=== PATIENT | male | born 1960 | race Caucasian/White ===

== ENCOUNTER 2021-03-11 11:32 | Emergency (ER) | payer BC ==
[2021-03-11 12:04] LABS: Basophils % (A) 0 %; Eosinophils # (A) 0.1 k/uL (0-0.7); Eosinophils % (A) 2 %; HCT 42.3 % (39.0-53.0); Lymphocytes # (A) 1.7 k/uL (1.0-4.8); Lymphocytes % (A) 19 %; MCV 90.8 fL (80.0-100.0); Mean Platelet Volume 9.1; Monocytes # (A) 0.6 k/uL (0-1.0); Monocytes % (A) 6 %; Neutrophils # (A) 6.4 k/uL (1.3-7.7); Neutrophils % (A) 71 %; Platelet Count 410 k/uL (150-450); RBC 4.66 m/uL (4.30-5.90); RDW 13.3 % (11.5-15.5)
--- NOTE | 2021-03-11 12:08 | ED ---
Fall HPI <Gianna Velasquez - Last Filed: 03/11/21 14:40> - General Source: patient, EMS Mode of arrival: EMS - History of Present Illness MD Complaint: fall <TomYg - Last Filed: 03/11/21 14:52> - General Chief Complaint: Fall Stated Complaint: Head trauma Time Seen by Provider: 03/11/21 11:32 - History of Present Illness Initial Comments: Is a 60-year-old male who was up on a foot ladder cleaning his gutters when the ladder collapsed and he fell approximately 8 feet cement. He did strike his head on the cement as well as sustained abrasions to the extremities of both hands. He did have loss of consciousness for about 3 minutes. He was brought in by EMS C-collared. He did complain of left-sided head pain he had an approximately a severe left for had laceration with possible evidence of depression he also complains some left-sided chest pain and upper abdominal tin n. No loss of function to the upper or lower extremities the patient is hard of hearing it should be noted he did have multiple abrasions of both hands with partial avulsion of the right thumbnail. He complains of pain to the left thumb nail area as well as to the distal left wrist. No fevers chills nausea vomiting sweats he knew who he was in the 1 day was then over the month or year. Per par amedics she also perseverating somewhat. He does believe his last tetanus shot was 2 years ago. (Yg Santos) - Related Data Home Medications Medication Instructions Recorded Confirmed Celecoxib [CeleBREX] 200 mg PO BID 03/11/21 03/11/21 DULoxetine HCL [Cymbalta] 60 mg PO DAILY 03/11/21 03/11/21 Fenofibrate Nanocrystallized 145 mg PO DAILY 03/11/21 03/11/21 [Fenofibrate] Simvastatin [Zocor] 40 mg PO DAILY 03/11/21 03/11/21 Triamterene-Hctz 37.5-25Mg 1 cap PO DAILY 03/11/21 03/11/21 [Dyazide 37.5-25 Capsule] amLODIPine [Norvasc] 5 mg PO DAILY 03/11/21 03/11/21 busPIRone HCL 10 mg PO BID 03/11/21 03/11/21 Previous Rx's Medication Instructions Recorded Cephalexin [Keflex] 500 mg PO Q8HR 7 Days #21 cap 03/11/21 Allergies Allergy/AdvReac Type Severity Reaction Status Date / Time No Known Allergies Allergy Verified 03/11/21 12:35 Review of Systems ROS Other: All systems not noted in ROS Statement are negative. <Gianna Velasquez - Last Filed: 03/11/21 14:40> ROS Other: All systems not noted in ROS Statement are negative. <Yg Santos - Last Filed: 03/11/21 14:52> ROS Statement: Those systems with pertinent positive or pertinent negative responses have been documented in the HPI. Past Medical History Past Medical History: No Reported History History of Any Multi-Drug Resistant Organisms: None Reported Additional Past Surgical History / Comment(s): neck and ear surgery Past Psychological History: No Psychological Hx Reported Smoking Status: Former smoker Past Alcohol Use History: Occasional Past Drug Use History: None Reported <Yg Santos - Last Filed: 03/11/21 14:52> General Exam Limitations: no limitations General appearance: alert, anxious Head exam: Present: normocephalic, other (Mark 570 laceration left for had no active bleeding) Eye exam: Present: normal appearance, PERRL, EOMI. Absent: scleral icterus, conjunctival injection, periorbital swelling ENT exam: Present: normal exam, mucous membranes moist Neck exam: Present: normal inspection, other (No stridor JVD or bruits some mild tenderness of the paraspinous musculature no step-off or crepitation c-collar in place) Respiratory exam: Present: normal lung sounds bilaterally, chest wall tenderness (Tennis palpation along the anterolateral chest wall with no step-off or crepitation). Absent: respiratory distress, wheezes, rales, rhonchi, stridor Cardiovascular Exam: Present: regular rate, normal rhythm, normal heart sounds. Absent: systolic murmur, diastolic murmur, rubs, gallop, clicks GI/Abdominal exam: Present: soft, tenderness (Left flank tenderness no ecchymosi s seen) Rectal exam: Present: normal inspection exam: Present: normal inspection Extremities exam: Present: normal inspection (Is palpation of the left hip area no step-off or crepitation he does demonstrate full range of motion), tenderness, normal capillary refill, other (Multiple abrasions seen over the dorsal aspects of the fingers and both hands stress the partial avulsion of the right thumbnail no active bleeding however. Abrasions over the right thumb as well as the adjacent fingers) Back exam: Present: normal inspection Neurological exam: Present: alert, altered, CN II-XII intact Psychiatric exam: Present: normal affect, anxious Skin exam: Present: warm, dry, normal color. Absent: intact <TomYg - Last Filed: 03/11/21 14:52> - General Exam Comments Initial Comments: This a well-developed well-nourished awake alert oriented 2 male Madhuri Coma Scale 14 (TomYg) Course Vital Signs 03/11/21 11:32 Temperature 97.7 F Pulse Rate 69 Respiratory 20 Rate O2 Sat by Pulse 97 Oximetry Procedures - Laceration Laceration #1 Consent Obtained: verbal consent Indication: laceration Site: face (Left side of forehead into the scalp) Size (cm): 8 Description: linear Depth: simple, single layer Anesthetic Used: lidocaine 1% Anesthesia Technique: local infiltration Amount (mls): 8 Pre-repair: irrigated extensively Type of Sutures: vicryl Size of Sutures: 5-0 Number of Sutures: 13 Technique: simple, interrupted Patient Tolerated Procedure: well <Gianna Velasquez - Last Filed: 03/11/21 14:40> Medical Decision Making - Lab Data Result diagrams: 03/11/21 11:50 03/11/21 11:50 <Gianna Velasquez - Last Filed: 03/11/21 14:40> - Lab Data Result diagrams: 03/11/21 11:50 03/11/21 11:50 - EKG Data -: EKG Interpreted by Me EKG shows normal: sinus rhythm, axis, intervals, QRS complexes, ST-T waves Rate: normal - Radiology Data Radiology results: report reviewed (Imaging reviewed including CAT scans all x- rays no evidence of acute processes.), image reviewed <TomYg - Last Filed: 03/11/21 14:52> - Medical Decision Making I did reevaluate the patient multiple occasions he has been demonstrate some perseveration however CAT scan is negative I did a long discussion with the patient and family regarding the findings patient wishes to go home at this time. He does demonstrate clinical evidence of concussion. Scalp laceration was repaired by my physician occupational therapist's assistant Tiff. Patient will be discharged with follow-up with his family doctor. He will be given a couple days off from work as he does do lifting and a lot of fine motor movement. He does have multiple abrasions to his fingers hands. (Yg Santos) - Lab Data Lab Results 03/11/21 03/11/21 03/11/21 Range/Units 10:42 11:45 11:50 WBC 9.0 (3.8-10.6) k/uL RBC 4.66 (4.30-5.90) m/uL Hgb 14.0 (13.0-17.5) gm/dL Hct 42.3 (39.0-53.0) % MCV 90.8 (80.0-100.0) fL MCH 30.0 (25.0-35.0) pg MCHC 33.0 (31.0-37.0) g/dL RDW 13.3 (11.5-15.5) % Plt Count 410 (150-450) k/uL MPV 9.1 Neutrophils % 71 % Lymphocytes % 19 % Monocytes % 6 % Eosinophils % 2 % Basophils % 0 % Neutrophils # 6.4 (1.3-7.7) k/uL Lymphocytes # 1.7 (1.0-4.8) k/uL Monocytes # 0.6 (0-1.0) k/uL Eosinophils # 0.1 (0-0.7) k/uL Basophils # 0.0 (0-0.2) k/uL PT (9.0-12.0) sec INR (<1.2) APTT (22.0-30.0) sec Sodium (137-145) mmol/L Potassium (3.5-5.1) mmol/L Chloride (98-107) mmol/L Carbon Dioxide (22-30) mmol/L Anion Gap mmol/L BUN (9-20) mg/dL Creatinine (0.66-1.25) mg/dL Est GFR (CKD-EPI)AfAm (>60 ml/min/1.73 sqM) Est GFR (CKD-EPI)NonAf (>60 ml/min/1.73 sqM) Glucose (74-99) mg/dL Plasma Lactic Acid Deonte (0.7-2.0) mmol/L Calcium (8.4-10.2) mg/dL Total Bilirubin (0.2-1.3) mg/dL AST (17-59) U/L ALT (4-49) U/L Alkaline Phosphatase (38-126) U/L Creatine Kinase (55-170) U/L Troponin I (0.000-0.034) ng/mL Total Protein (6.3-8.2) g/dL Albumin (3.5-5.0) g/dL Urine Color Urine Appearance (Clear) Urine pH (5.0-8.0) Ur Specific [place] (1.001-1.035) Urine Protein (Negative) Urine Glucose (UA) (Negative) Urine Ketones (Negative) Urine Blood (Negative) Urine Nitrite (Negative) Urine Bilirubin (Negative) Urine Urobilinogen (<2.0) mg/dL Ur Leukocyte Esterase (Negative) Urine RBC (0-5) /hpf Urine WBC (0-5) /hpf Ur Squamous Epith Cells (0-4) /hpf Granular Casts (0) /lpf Urine Mucus (None) /hpf Urine Opiates Screen (NotDetected) Ur Oxycodone Screen (NotDetected) Urine Methadone Screen (NotDetected) Ur Propoxyphene Screen (NotDetected) Ur Barbiturates Screen (NotDetected) U Tricyclic Antidepress (NotDetected) Ur Phencyclidine Scrn (NotDetected) Ur Amphetamines Screen (NotDetected) U Methamphetamines Scrn (NotDetected) U Benzodiazepines Scrn (NotDetected) Urine Cocaine Screen (NotDetected) U Marijuana (THC) Screen (NotDetected) Serum Alcohol mg/dL Blood Type A Positive Blood Type Confirm A Positive Blood Type Recheck Bld Type Recheck Status Antibody Screen NEGATIVE Spec Expiration Date 03/11/21 03/11/21 03/11/21 Range/Units 11:50 11:50 11:50 WBC (3.8-10.6) k/uL RBC (4.30-5.90) m/uL Hgb (13.0-17.5) gm/dL Hct (39.0-53.0) % MCV (80.0-100.0) fL MCH (25.0-35.0) pg MCHC (31.0-37.0) g/dL RDW (11.5-15.5) % Plt Count (150-450) k/uL MPV Neutrophils % % Lymphocytes % % Monocytes % % Eosinophils % % Basophils % % Neutrophils # (1.3-7.7) k/uL Lymphocytes # (1.0-4.8) k/uL Monocytes # (0-1.0) k/uL Eosinophils # (0-0.7) k/uL Basophils # (0-0.2) k/uL PT 10.3 (9.0-12.0) sec INR 1.0 (<1.2) APTT 21.9 L (22.0-30.0) sec Sodium 140 (137-145) mmol/L Potassium 4.0 (3.5-5.1) mmol/L Chloride 105 (98-107) mmol/L Carbon Dioxide 27 (22-30) mmol/L Anion Gap 8 mmol/L BUN 19 (9-20) mg/dL Creatinine 0.91 (0.66-1.25) mg/dL Est GFR (CKD-EPI)AfAm >90 (>60 ml/min/1.73 sqM) Est GFR (CKD-EPI)NonAf >90 (>60 ml/min/1.73 sqM) Glucose 135 H (74-99) mg/dL Plasma Lactic Acid [place] (0.7-2.0) mmol/L Calcium 9.1 (8.4-10.2) mg/dL Total Bilirubin 0.4 (0.2-1.3) mg/dL AST 28 (17-59) U/L ALT 30 (4-49) U/L Alkaline Phosphatase 47 (38-126) U/L Creatine Kinase 103 (55-170) U/L Troponin I (0.000-0.034) ng/mL Total Protein 6.5 (6.3-8.2) g/dL Albumin 4.3 (3.5-5.0) g/dL Urine Color Yellow Urine Appearance Clear (Clear) Urine pH 6.0 (5.0-8.0) Ur Specific [place] 1.033 (1.001-1.035) Urine Protein 2+ H (Negative) Urine Glucose (UA) Negative (Negative) Urine Ketones Negative (Negative) Urine Blood Small H (Negative) Urine Nitrite Negative (Negative) Urine Bilirubin Negative (Negative) Urine Urobilinogen <2.0 (<2.0) mg/dL Ur Leukocyte Esterase Negative (Negative) Urine RBC 16 H (0-5) /hpf Urine WBC 3 (0-5) /hpf Ur Squamous Epith Cells <1 (0-4) /hpf Granular Casts 1 (0) /lpf Urine Mucus Rare H (None) /hpf Urine Opiates Screen Not Detected (NotDetected) Ur Oxycodone Screen Not Detected (NotDetected) Urine Methadone Screen Not Detected (NotDetected) Ur Propoxyphene Screen Not Detected (NotDetected) Ur Barbiturates Screen Not Detected (NotDetected) U Tricyclic Antidepress Not Detected (NotDetected) Ur Phencyclidine Scrn Not Detected (NotDetected) Ur Amphetamines Screen Not Detected (NotDetected) U Methamphetamines Scrn Not Detected (NotDetected) U Benzodiazepines Scrn Not Detected (NotDetected) Urine Cocaine Screen Not Detected (NotDetected) U Marijuana (THC) Screen Not Detected (NotDetected) Serum Alcohol <10 mg/dL Blood Type Blood Type Confirm Blood Type Recheck Bld Type Recheck Status Antibody Screen Spec Expiration Date 03/11/21 03/11/21 03/11/21 Range/Units 11:50 11:50 11:50 WBC (3.8-10.6) k/uL RBC (4.30-5.90) m/uL Hgb (13.0-17.5) gm/dL Hct (39.0-53.0) % MCV (80.0-100.0) fL MCH (25.0-35.0) pg MCHC (31.0-37.0) g/dL RDW (11.5-15.5) % Plt Count (150-450) k/uL MPV Neutrophils % % Lymphocytes % % Monocytes % % Eosinophils % % Basophils % % Neutrophils # (1.3-7.7) k/uL Lymphocytes # (1.0-4.8) k/uL Monocytes # (0-1.0) k/uL Eosinophils # (0-0.7) k/uL Basophils # (0-0.2) k/uL PT (9.0-12.0) sec INR (<1.2) APTT (22.0-30.0) sec Sodium (137-145) mmol/L Potassium (3.5-5.1) mmol/L Chloride (98-107) mmol/L Carbon Dioxide (22-30) mmol/L Anion Gap mmol/L BUN (9-20) mg/dL Creatinine (0.66-1.25) mg/dL Est GFR (CKD-EPI)AfAm (>60 ml/min/1.73 sqM) Est GFR (CKD-EPI)NonAf (>60 ml/min/1.73 sqM) Glucose (74-99) mg/dL Plasma Lactic Acid [place] 1.9 (0.7-2.0) mmol/L Calcium (8.4-10.2) mg/dL Total Bilirubin (0.2-1.3) mg/dL AST (17-59) U/L ALT (4-49) U/L Alkaline Phosphatase (38-126) U/L Creatine Kinase (55-170) U/L Troponin I <0.012 (0.000-0.034) ng/mL Total Protein (6.3-8.2) g/dL Albumin (3.5-5.0) g/dL Urine Color Urine Appearance (Clear) Urine pH (5.0-8.0) Ur Specific [place] (1.001-1.035) Urine Protein (Negative) Urine Glucose (UA) (Negative) Urine Ketones (Negative) Urine Blood (Negative) Urine Nitrite (Negative) Urine Bilirubin (Negative) Urine Urobilinogen (<2.0) mg/dL Ur Leukocyte Esterase (Negative) Urine RBC (0-5) /hpf Urine WBC (0-5) /hpf Ur Squamous Epith Cells (0-4) /hpf Granular Casts (0) /lpf Urine Mucus (None) /hpf Urine Opiates Screen (NotDetected) Ur Oxycodone Screen (NotDetected) Urine Methadone Screen (NotDetected) Ur Propoxyphene Screen (NotDetected) Ur Barbiturates Screen (NotDetected) U Tricyclic Antidepress (NotDetected) Ur Phencyclidine Scrn (NotDetected) Ur Amphetamines Screen (NotDetected) U Methamphetamines Scrn (NotDetected) U Benzodiazepines Scrn (NotDetected) Urine Cocaine Screen (NotDetected) U Marijuana (THC) Screen (NotDetected) Serum Alcohol mg/dL Blood Type Blood Type Confirm Blood Type Recheck No Previous Record Bld Type Recheck Status CABO Indicated Antibody Screen Spec Expiration Date 03/14/20212349 - EKG Data EKG Comments: Normal sinus rhythm of 69. Interval 162 QRS 92 QT since QTC no acute ST- T wave changes (Yg Santos) Critical Care Time Critical Care Time: Yes Total Critical Care Time: 37 <Yg Santos - Last Filed: 03/11/21 14:52> Critical Care Time: Critical care time of his initial presentation with history physical labs x-rays discussed with paramedics upon arrival multiple reevaluation the patient. Multiple discussion with the patient family. Surgery old medical records. Patient was a priority 2 trauma. Documentation of the above. (Yg Santos) Disposition <Gianna Velasquez - Last Filed: 03/11/21 14:40> Is patient prescribed a controlled substance at d/c from ED?: No <Yg Santos - Last Filed: 03/11/21 14:52> Clinical Impression: Fall, Concussion, Post concussion syndrome, Scalp laceration, Abrasions of multiple sites Disposition: HOME SELF-CARE Condition: Good Instructions (If sedation given, give patient instructions): Fall Prevention (ED), Concussion (ED), Post Concussion Syndrome (ED), Care For Your Stitches (ED), Facial Laceration (ED) Additional Instructions: Tylenol for pain Prescriptions: Cephalexin [Keflex] 500 mg PO Q8HR 7 Days #21 cap Referrals: None,Stated [REFERRING] - 1-2 days
[2021-03-11 12:11] LABS: ALT 30 U/L (4-49); AST 28 U/L (17-59); African American GFR (CKD) >90 (>60 ml/min/1.73 sqM); Albumin 4.3 g/dL (3.5-5.0); Alcohol <10 mg/dL; Alkaline Phosphatase 47 U/L (38-126); Anion Gap 8 mmol/L; Blood Urea Nitrogen 19 mg/dL (9-20); Calcium 9.1 mg/dL (8.4-10.2); Carbon Dioxide 27 mmol/L (22-30); Chloride 105 mmol/L (98-107); Creatine Kinase 103 U/L (55-170); Glucose 135 mg/dL (74-99); Non-African American GFR(CKD) >90 (>60 ml/min/1.73 sqM); Sodium 140 mmol/L (137-145); Total Bilirubin 0.4 mg/dL (0.2-1.3); Total Protein 6.5 g/dL (6.3-8.2)
[2021-03-11 12:22] LABS: Partial Thromboplastin Time 21.9 sec (22.0-30.0); Prothrombin Time 10.3 sec (9.0-12.0)
[2021-03-11 12:36] LABS: Appearance,Urine Clear (Clear); Bilirubin,Urine Negative (Negative); Blood,Urine Small (Negative); Color,Urine Yellow; Glucose,Urine (UA) Negative (Negative); Granular Casts,Urine 1 /lpf (0); Ketones,Urine Negative (Negative); Leukocyte Esterase,Urine Negative (Negative); Mucus,Urine Rare /hpf; Nitrite,Urine Negative (Negative); Protein,Urine 2+ (Negative); RBC,Urine 16 /hpf (0-5); Specific Gravity,Urine 1.033 (1.001-1.035); Squamous Epithelial Cell,Urine <1 /hpf (0-4); Urobilinogen,Urine <2.0 mg/dL (<2.0); WBC,Urine 3 /hpf (0-5)
--- NOTE | 2021-03-11 12:55 | CT ---
EXAMINATION TYPE: CT brain rhea miranda con DATE OF EXAM: 03/11/2021 COMPARISON: None HISTORY: fall from ladder, LOC CT DLP: [address] of the brain was performed. The ventricles, basal cisterns and sulci overlying the cerebral convexities demonstrate mild enlargem ent. There is no evidence for intracranial hemorrhage or sulcal effacement. There is decreased attenuatio n about the periventricular white matter and deep white matter of both cerebral hemispheres, compatib le with chronic small vessel ischemia. No mass effects are seen. If symptoms persist consider MRI. Osseous calvarium is intact. Left temporal scalp laceration. IMPRESSION: 1. Age related atrophic and chronic small vessel ischemic change without acute intracranial process seen at this time. CT Cervical Spine: Unenhanced CT of the cervical spine was performed with bone and soft tissue window settings submitted . Coronal and sagittal reconstruction is obtained. There is normal alignment and prevertebral soft tissues. No evidence for acute cervical fracture . Po stoperative changes of ACDF C5-C7. Scattered degenerative disc disease and spondylosis. Biapical sca rring. IMPRESSION: 1. No evidence for acute fracture or subluxation of the cervical spine.
--- NOTE | 2021-03-11 12:57 | CT ---
EXAMINATION TYPE: CT ChestAbdPelvis w con DATE OF EXAM: 03/11/2021 COMPARISON: None HISTORY: Fall from ladder CT DLP: 3362.6 mGycm CONTRAST: Contrast enhanced Trauma CT of the Chest, Abdomen and Pelvis is performed with IV Contrast, patient i njected with 100 mL of Isovue 300. Chest: LUNGS: There is no evidence for pneumothorax. The lungs are clear and free of focal contusion or ate lectasis. No pleural effusion MEDIASTINUM: Thoracic aorta is of normal caliber without CT evidence to suggest traumatic induced ao rtic injury. No mediastinal fluid or blood. No pericardial fluid or cardia abnormality. HILAR STRUCTURES: No evidence for mass. No hilar adenopathy is appreciated. OTHER: No significant abnormality. OSSEOUS: No displaced osseous fractures identified. CT ABDOMEN AND PELVIS FINDINGS: LIVER/GB: No focal laceration, contusion or subcapsular hemorrhage. No calcified gallstones. 2.5 c m hypoattenuating lesion anterior segment right hepatic lobe may reflect cyst versus hemangioma. Bili dewey tree is of normal caliber. PANCREAS: No evidence for transection. No inflammation. No distinct mass. SPLEEN: No focal laceration, contusion or subcapsular hemorrhage. ADRENALS: No hemorrhage. No nodule. No thickening. KIDNEYS/BLADDER: No focal laceration, contusion or subcapsular hemorrhage. No hydronephrosis. No n ephrolithiasis. No disctinct renal mass. BOWEL: Bowel is intact. No evidence for pneumoperitoneum. GENITAL ORGANS: No gross abnormality. LYMPH NODES: No greater than 1cm abdominal or pelvic lymph nodes are appreciated. AORTA: No traumatic aortic injury visualized. OSSEOUS STRUCTURES: Mild degenerative change lumbar spine. OTHER: No evidence for hemoperitoneum. IMPRESSION: 1. No evidence for traumatic injury to the chest. 2. No evidence for traumatic injury to the abdomen or pelvis.
[2021-03-11 12:58] LABS: Amphetamine Screen,Urine Not Detected (NotDetected); Barbiturate Screen,Urine Not Detected (NotDetected); Benzodiazepines Screen,Urine Not Detected (NotDetected); Cocaine Screen,Urine Not Detected (NotDetected); Methadone Screen, Urine Not Detected (NotDetected); Opiate Screen,Urine Not Detected (NotDetected); Oxycodone Screen, Urine Not Detected (NotDetected); Phencyclidine Screen,Urine Not Detected (NotDetected); Tricyclic Antidepressant,Urine Not Detected (NotDetected); Urn Cannabinoid Scrn Not Detected (NotDetected)
[2021-03-11] MEDS ORDERED: fentaNYL (PF) 50 MCG/ML 2 ML AMP IV STA (12:58)
--- NOTE | 2021-03-11 12:58 | XR ---
EXAMINATION TYPE: XR chest 1V portable DATE OF EXAM: 03/11/2021 HISTORY: Shortness of breath. COMPARISON: None. TECHNIQUE: Single view of the chest is submitted. FINDINGS: Demonstrated are scattered senescent parenchymal change. Prominent perihilar markings may reflect atelectasis versus developing infiltrate. Degree of inspirat ion is limiting. The heart is stable. Hilar and mediastinal structures are within normal limits. Degenerative changes are seen of the dorsal spine. IMPRESSION: 1. Prominent perihilar markings may reflect atelectasis versus developing infiltrate. Degree of insp iration is limiting.
--- NOTE | 2021-03-11 12:58 | XR ---
EXAMINATION TYPE: XR pelvis AP view DATE OF EXAM: 03/11/2021 CLINICAL HISTORY: pain TECHNIQUE: Single view the pelvis is submitted. FINDINGS: No evidence for fracture, dislocation or bony lesion. Joint spaces are well-preserved. S I joints appear symmetric. IMPRESSION: 1. No acute fracture or dislocation seen. ICD 10 NO FRACTURE, INITIAL EVALUATION
--- NOTE | 2021-03-11 13:00 | XR ---
EXAMINATION TYPE: XR hand complete RT DATE OF EXAM: 03/11/2021 CLINICAL HISTORY: pain TECHNIQUE: Frontal, lateral and oblique images of the right hand are obtained. COMPARISON: None. FINDINGS: There is no acute fracture/dislocation evident. Healed fracture fifth metacarpal. The join t spaces appear within normal limits. The overlying soft tissue appears unremarkable. IMPRESSION: There is no acute fracture or dislocation ICD 10 NO FRACTURE, INITIAL EVALUATION
--- NOTE | 2021-03-11 13:02 | XR ---
EXAMINATION TYPE: XR forearm LT DATE OF EXAM: 03/11/2021 CLINICAL HISTORY: pain TECHNIQUE: Frontal and lateral images of the left forearm are obtained. COMPARISON: None. FINDINGS: There is no acute fracture/dislocation evident. Unfused ossicle or a remote fracture of th e ulnar styloid process. The joint spaces appear within normal limits. The overlying soft tissue lesley ears unremarkable. IMPRESSION: There is no acute fracture or dislocation. ICD 10 NO FRACTURE, INITIAL EVALUATION
[2021-03-11] MEDS ORDERED: LIDOCAINE 1% INJ 10MG/ML (20 ML MDV) SQ ONE (13:44)
[2021-03-11 15:51] VITALS: BP 139/61; PULSE 68; RESP 17; TEMP 98.1
== END 2021-03-11 15:00 | disposition home or self-care (01) ==
LOC: EC 11:32
DX: S06.0X1A Concussion with loss of consciousness of 30 minutes or less, initial encounter (principal); S01.01XA Laceration without foreign body of scalp, initial encounter; S61.101A Unspecified open wound of right thumb with damage to nail, initial encounter; S60.512A Abrasion of left hand, initial encounter; S60.511A Abrasion of right hand, initial encounter; Z87.891 Personal history of nicotine dependence; W11.XXXA Fall on and from ladder, initial encounter
CPT/HCPCS: 36415; 93005; 86900; 86901; 80053; 82550; 83605; 84484; 85025; 85610; 85730; 86850; 81001; 80306; 80320; 72170; 73090; 73130; 71045; 72125; 70450; 71260; 74177; 12015; 99285; 96374; 96372; J2001; J3010; Q9967